=== PATIENT | male | born 1965 | race Caucasian/White ===

== ENCOUNTER 2017-08-04 07:08 | Day surgery (SDC) | payer OTHER ==
[2017-08-02 13:19] VITALS: BMI 27.8
[2017-08-04 07:32] VITALS: TEMP 97.5
[2017-08-04] MEDS ORDERED: EPINEPHrine/PF 1 MG/1 ML (1:1,000) AMPULE ONE (07:32)
[2017-08-04] MEDS ORDERED: BSS (NA/CA/MG/K) BALANCED SALT SOLUTION OPHTH SOLN 15 ML BOTTLE ONE (07:33)
[2017-08-04] MEDS ORDERED: LIDOCAINE HCL/PF 1% SDV 5ML VIAL ONE (07:33)
[2017-08-04] MEDS ORDERED: LIDOCAINE HCL 2% JELLY (5 ML/TUBE) ONE (07:33)
[2017-08-04] MEDS: TROPICAMIDE 1% OPHTH SOLN 15 ML BOTTLE ONE ×3 (07:40→07:50)
[2017-08-04] MEDS: CYCLOPENTOLATE HCL 1% OPHTH SOLN 2 ML BOTTLE ONE ×3 (07:40→07:50)
[2017-08-04] MEDS: FLURBIPROFEN 0.03% OPHTH SOLN 2.5 ML BOTTLE ONE ×3 (07:40→07:50)
[2017-08-04] MEDS: CIPROFLOXACIN 0.3% EYE DROPS 5 ML BOTTLE ONE ×3 (07:40→07:50)
[2017-08-04] MEDS: PHENYLEPHRINE 2.5% OPHTH SOLN 15 ML BOTTLE ONE ×3 (07:40→07:50)
[2017-08-04] MEDS ORDERED: ACETAMINOPHEN 325 MG TABLET (FP) PO PRN (07:52)
[2017-08-04] MEDS ORDERED: CYCLOPENTOLATE HCL 1% OPHTH SOLN 2 ML BOTTLE OP SCH (08:00)
[2017-08-04] MEDS ORDERED: TROPICAMIDE 1% OPHTH SOLN 15 ML BOTTLE OP SCH (08:00)
[2017-08-04] MEDS ORDERED: CIPROFLOXACIN HCL 0.3% OPHTH 2.5ML BOTTLE OP SCH (08:00)
[2017-08-04] MEDS ORDERED: FLURBIPROFEN 0.03% OPHTH SOLN 2.5 ML BOTTLE OP SCH (08:00)
[2017-08-04] MEDS ORDERED: PHENYLEPHRINE 2.5% OPHTH SOLN 15 ML BOTTLE OP SCH (08:00)
[2017-08-04] MEDS ORDERED: MIDAZOLAM HCL 2 MG/2 ML SINGLE DOSE VIAL ONE (08:49)
[2017-08-04] MEDS ORDERED: TETRACAINE 0.5% OPHTH SOLN 2 ML BOTTLE OD ONE (09:21)
[2017-08-04] MEDS ORDERED: POVIDONE-IODINE 5% OPHTHALMIC PREP 30 ML SOLUTION OD ONE (09:23)
[2017-08-04] MEDS ORDERED: EPINEPHrine/PF 1 MG/1 ML (1:1,000) AMPULE IO ONE (09:31)
[2017-08-04] MEDS ORDERED: LIDOCAINE HCL 1% PRESERVATIVE FREE - 30ML VIAL IO ONE (09:31)
[2017-08-04] MEDS ORDERED: CHONDROITIN SU A/HYALUR SOD 1 KIT IO ONE (09:31)
[2017-08-04] MEDS ORDERED: BSS (NA/CA/MG/K) BALANCED SALT SOLUTION OPHTH SOLN 15 ML BOTTLE OD ONE (09:31)
[2017-08-04 11:08] VITALS: BP 140/80; PULSE 79
--- NOTE | 2017-08-04 13:47 | SPEC ---
DATE OF OPERATION: 08/04/2017 OPERATION: Phacoemulsification with posterior chamber intraocular lens implantation, right eye. Lens used [id number], 18.5 Diopter power, Serial No. [id number]. PREOPERATIVE DIAGNOSIS: Cataract, right eye. POSTOPERATIVE DIAGNOSIS: Cataract, right eye. SURGEON: Minor Callahan M.D. ANESTHESIA: Topical MAC. COMPLICATIONS: None. PROCEDURE: The patient was brought to the operating room and correctly identified along with the operative site and the correct intraocular lens du. The patient was then prepped and draped in the usual sterile fashion including 5% Betadine solution in the conjunctival sac and an eyelid drape. An eyelid speculum was then placed in the eye. A paracentesis port was created and approximately 0.5 mL of preservative free Lidocaine was then injected into the eye. Viscoelastic was then injected to inflate the anterior chamber. A temporal clear corneal wound was created. A continuous circular capsulorrhexis was performed. The nucleus was then hydrodissected with BSS and removed with phacoemulsification. The remaining cortical material was irrigated and aspirated. Viscoelastic was injected to inflate the capsular bag and the intraocular lens was then implanted into the capsular bag. The remaining Viscoelastic was irrigated and aspirated from the eye. The IOL was noted to be well centered and completely covered by the anterior capsulorrhexis. Topical vancomycin was placed and the eye patched and shielded. All wounds were tested and found to be watertight. No suture was placed. The eye was then shielded. The patient was then discharged from the operating room in stable condition. MINOR CALLAHAN M.D. [id number]
== END 2017-08-04 11:30 | disposition home or self-care (01) ==
LOC: JASU-SURG 07:08
PROVIDERS: ATTEND Ophthalmology
PROC: 08RJ3JZ Replacement of Right Lens with Synthetic Substitute, Percutaneous Approach (ICD-10-PCS; principal; 2017-08-04 09:00)
DX: H26.9 Unspecified cataract (principal)

== ENCOUNTER 2017-10-19 22:54 | Emergency (ER) | payer OTHER ==
[2017-10-19 23:04] VITALS: BP 110/83; PULSE 91; TEMP 98; BMI 27.3
--- NOTE | 2017-10-19 23:13 | PDOC ---
History of Present Illness - General History Source: Patient Exam Limitations: No Limitations - History of Present Illness Initial Comments: 10/19/17 23:25 The patient is a 52 year old male, with a significant past medical history of hypertension and hypercholesterolemia, and diabetes, who presents to the emergency department with 4 days of cough and sore throat. He reportedly had chest pain on the first day with his cough, but denies any chest discomfort since. He reports the cough is persistent and nonproductive. He states his is sick with similar symptoms, however, states her symptoms have been improving. The patient states he has been taking Nyquil with little relief. He reports mild pain in the back of his throat. He denies difficulty swallowing. He denies any other complaints. He denies chest pain, shortness of breath, headache and dizziness. He denies fever, chills, nausea, vomit, diarrhea and constipation. He denies dysuria, frequency, urgency and hematuria. Allergies: NKDA Social history: Pt denies tobacco use. <Tasia Mata - Last Filed: 10/20/17 00:32> <Bella Goldstein - Last Filed: 10/20/17 00:43> - General Chief Complaint: Cold Symptoms Stated Complaint: COUGHING Time Seen by Provider: 10/19/17 23:13 Past History <Tasia Mata - Last Filed: 10/20/17 00:32> - Past Medical History Anemia: No Asthma: No Cancer: No Cardiac Disorders: No CVA: No COPD: No CHF: No Dementia: No Diabetes: Yes GI Disorders: No Disorders: No HTN: Yes Hypercholesterolemia: Yes Liver Disease: No Seizures: No Thyroid Disease: No - Suicide/Smoking/Psychosocial Hx Smoking History: Never smoked Hx Alcohol Use: No Drug/Substance Use Hx: No Substance Use Type: None Hx Substance Use Treatment: No <Bella Goldstein - Last Filed: 10/20/17 00:43> - Past Medical History Allergies/Adverse Reactions: Allergies Allergy/AdvReac Type Severity Reaction Status Date / Time No Known Drug Allergies Allergy Verified 08/02/17 13:22 Home Medications: Ambulatory Orders Aspirin [Aspirin EC] 81 mg PO HS 10/08/15 Lisinopril 5 mg PO DAILY 10/08/15 Simvastatin [Zocor -] 20 mg PO BID 10/08/15 Glyburide 5 mg PO BID 10/09/15 Sitagliptin Phos/Metformin HCl [Janumet 50-1,000 mg Tablet] 1 tab PO BID Review of Systems - Review of Systems Able to Perform ROS?: Yes Comments:: 10/19/17 23:25 CONSTITUTIONAL: Absent: fever, no chills, no fatigue EYES: Absent: visual changes ENT: (+) sore throat Absent: ear pain, CARDIOVASCULAR: Absent: chest pain, no palpitations RESPIRATORY: (+) dry cough, Absent: no SOB GI: Absent: abdominal pain, no nausea, no vomiting, no constipation, no diarrhea GENITOURINARY: Absent: dysuria, no frequency, no hematuria MUSCULOSKELETAL: Absent: back pain, no arthralgia, no myalgia SKIN: Absent: rash NEURO: Absent: headache <Tasia Mata - Last Filed: 10/20/17 00:32> *Physical Exam - Vital Signs Last Vital Signs Temp Pulse Resp BP Pulse Ox 98 F 91 H 20 110/83 98 10/19/17 23:00 10/19/17 23:00 10/19/17 23:00 10/19/17 23:00 10/19/17 23:00 - Physical Exam Comments: 10/19/17 23:26 GENERAL: Well-appearing, well-nourished. No apparent distress. HEENT: Normocephalic, atraumatic. PERRL, EOM intact. Oropharynx is clear without edema , exudates or erythema CARDIOVASCULAR: Normal S1, S2. Regular rate and rhythm. PULMONARY: (+) faint crackles and wheezing at the right lower lobe. ABDOMEN: Soft, non-distended, non-tender. EXTREMITIES: Normal ROM in all four extremities. No gross deformities. SKIN: Warm, dry. No rash NEUROLOGICAL: No focal neurological deficits. <Tasia Mata - Last Filed: 10/20/17 00:32> - Vital Signs Last Vital Signs Temp Pulse Resp BP Pulse Ox 98 F 91 H 20 110/83 98 10/19/17 23:00 10/19/17 23:00 10/19/17 23:00 10/19/17 23:00 10/19/17 23:00 <Bella Goldstein - Last Filed: 10/20/17 00:43> Heart Score/ECG Review - ECG Intrepretation Comment:: 10/20/17 00:32 EKG was read by Dr. Goldstein at 00:31 Impression: Normal Sinus Rhythm <Tasia Mata - Last Filed: 10/20/17 00:32> ED Treatment Course - RADIOLOGY Radiograph Interpretation: EXAM: X-ray CHEST PA \T\ LAT HISTORY: Cough COMPARISON: None. FINDINGS: The cardiomediastinal silhouette is normal. The lungs are clear. The bones and soft tissues are normal IMPRESSION: Normal chest. Martin Sun MD 10/20/2017 00:18 EST <Tasia Mata - Last Filed: 10/20/17 00:32> Medical Decision Making - Medical Decision Making 10/20/17 00:24 Pt with above hx c/o cough, myalgias, sore throat x 3-4 days. sick with similar sxs at home. CP on day of onset, but resolved soon after, no CP at present. Exam with crackles L mid/lower lung with wheeze. No hx asthma, non smoker. Likely viral syndrome, possible influenza. Because of lung exam with focal findings, will CXR to eval for pna. Because of comorbidities and report of CP at onset of illness, will do screening EKG. Flu swab. Predict dc home with supportive care instructions, f/u with PMD. 10/20/17 00:38 flu neg, EKG reviewed/normal/nsr 90, CXR normal, pt well appearing, will dc home with instructions to take tylenol/motrin for sxs, f/u with PMD, return if sxs worsen. <Bella Goldstein - Last Filed: 10/20/17 00:43> *DC/Admit/Observation/Transfer - Attestations Scribe Attestion: 10/19/17 23:28 Documentation prepared by Tasia Mata, acting as medical records tech for Bella Goldstein, <Tasia Mata - Last Filed: 10/20/17 00:32> - Discharge Dispostion Admit: No <Bella Goldstein - Last Filed: 10/20/17 00:43> Diagnosis at time of Disposition: Cough - Discharge Dispostion Disposition: HOME - Patient Instructions Printed Discharge Instructions: DI for Common Cold Additional Instructions: You were seen in the ER for cough. Your x-ray is normal, so is your EKG. You don 't have the flu. Please drink lots of fluids, take tylenol or motrin for pain/ fever and follow up with your primary care doctor. Print Language: TURKISH
[2017-10-19] MEDS ORDERED: guaiFENesin 200 MG/10 ML 10 ML UNIT-DOSE CUPS PO ONE (23:22)
[2017-10-19] MEDS ORDERED: IBUPROFEN 600 MG TABLET (FP) PO ONE ×2 (23:23→23:33)
[2017-10-19] MEDS ORDERED: guaiFENesin/D-METHORPHAN HB 10 ML UNIT-DOSE CUPS ONE (23:33)
--- NOTE | 2017-10-20 08:11 | EKG ---
Test Reason : Blood Pressure : / mmHG Vent. Rate : 090 BPM Atrial Rate : 090 BPM P-R Int : 170 ms QRS Dur : 096 ms QT Int : 362 ms P-R-T Axes : 056 002 029 degrees QTc Int : 442 ms NORMAL SINUS RHYTHM POSSIBLE ANTERIOR INFARCT , AGE UNDETERMINED ABNORMAL ECG NO PREVIOUS ECGS AVAILABLE Confirmed by ELIZABETH SHORT MD ([id number]) on 10/20/2017 8:11:15 AM Referred By: Confirmed By:ELIZABETH SHORT MD
== END 2017-10-20 00:53 | disposition home or self-care (01) ==
LOC: JER 22:54
DX: J00 Acute nasopharyngitis [common cold] (principal); I10 Essential (primary) hypertension; E11.9 Type 2 diabetes mellitus without complications; Z79.84 Long term (current) use of oral hypoglycemic drugs; E78.00 Pure hypercholesterolemia, unspecified
CPT/HCPCS: 71046-TC; 87804; 93005; 93010; 99281-25

== ENCOUNTER 2023-12-05 05:12 | Emergency (ER) | payer OTHER ==
[2023-12-05 05:18] VITALS: BP 151/77; PULSE 98; RESP 16; TEMP 97.5; BMI 25.7
[2023-12-05] MEDS ORDERED: FAMOTIDINE 20 MG/50 ML IVPB 20 MG/50 ML MG IVPB ONE (06:02)
[2023-12-05] MEDS: SODIUM CHLORIDE 1,000 ML IV STA (06:05)
[2023-12-05] MEDS: FAMOTIDINE 20 MG/50 ML IVPB 20 MG/50 ML MG IVPB ONE (06:05)
[2023-12-05 06:10] LABS: BASO % 0.5 % (0-2.0); EOS % 0.3 % (0-4.5); HEMATOCRIT 45.8 % (35.4-49); HEMOGLOBIN 15.3 GM/dL (11.7-16.9); LYMPH % 16.4 % (8-40); MCH 29.1 pg (25.7-33.7); MCHC 33.4 g/dl (32.0-35.9); MEAN CELL VOLUME 87.2 fl (80-96); MEAN PLT VOLUME 7.9 fl (7.5-11.1); NEUT % 76.8 % (42.8-82.8); PLATELET COUNT 252 10^3/uL (134-434); RBC 5.25 M/mm3 (4.00-5.60); RDW 13.7 % (11.9-15.9); WHITE BLOOD COUNT 14.1 K/mm3 (4.0-10.0)
[2023-12-05 06:27] LABS: POTASSIUM 4.3 mmol/L (3.5-5.1)
[2023-12-05 06:29] LABS: CALCIUM 9.6 mg/dL (8.5-10.1)
[2023-12-05 06:30] LABS: BLOOD UREA NITROGEN 14.4 mg/dL (7-18)
[2023-12-05 06:32] LABS: CREATININE 0.7 mg/dL (0.55-1.3)
[2023-12-05 06:34] LABS: BILIRUBIN,TOTAL 0.5 mg/dL (0.2-1); TOT PROT 7.5 g/dl (6.4-8.2)
[2023-12-05] MEDS ORDERED: LOPERAMIDE HCL 2 MG CAPSULE ONE (06:38)
[2023-12-05] MEDS: LOPERAMIDE HCL 2 MG CAPSULE PO ONE (06:42)
== END 2023-12-05 08:46 | disposition home or self-care (01) ==
LOC: JER 05:12
PROC: 3E033GC Introduction of Other Therapeutic Substance into Peripheral Vein, Percutaneous Approach (ICD-10-PCS; principal; 2023-12-05)
DX: R19.15 Other abnormal bowel sounds (principal); R19.7 Diarrhea, unspecified; A05.9 Bacterial foodborne intoxication, unspecified; R10.32 Left lower quadrant pain
CPT/HCPCS: 36415; 80053; 83690; 85025; 93005; 93010; 99284-25